=== PATIENT | female | born 1945 | race Asian ===

== ENCOUNTER → 2023-12-28 08:16 | Outpatient (REF) | payer MEDICARE, OTHER, SELFPAY | LOC: RST 08:16 | PROVIDERS: ATTENDING PHYSICIAN Otolaryngology; FAMILY PHYSICIAN Family Medicine | DX: R13.14 Dysphagia, pharyngoesophageal phase (principal) | CPT/HCPCS: 74230; 92611 ==

== ENCOUNTER → 2024-01-09 15:20 | Outpatient (REF) | payer MEDICARE, OTHER, SELFPAY | LOC: HWRAD 15:20 | PROVIDERS: ATTENDING PHYSICIAN Otolaryngology; FAMILY PHYSICIAN Family Medicine | DX: H65.33 Chronic mucoid otitis media, bilateral (principal) | CPT/HCPCS: 70480 ==

== ENCOUNTER → 2024-01-22 09:09 | Outpatient (REF) | payer MEDICARE, OTHER, SELFPAY ==
[2024-01-22 12:02] LABS: ALT (SGPT) 25 U/L (0-35); AST (SGOT) 28 U/L (14-36); Albumin 4.8 g/dl (3.5-5.0); Alkaline Phosphatase 58 U/L (38-126); Blood Urea Nitrogen 26 mg/dl (7-17); Calcium 10.3 mg/dl (8.4-10.2); Carbon Dioxide 27 mmol/L (22-30); Chloride 101 mmol/L (98-107); Glucose 133 mg/dl (70-99); Potassium 4.5 mmol/L (3.5-5.1); Sodium 141 mmol/L (135-145); Total Bilirubin 0.6 mg/dl (0.2-1.3); Total Protein 7.6 g/dl (6.3-8.2); eGFR > 60.00
[2024-01-22 12:22] LABS: Vitamin D, 25-OH*** 32.8 ng/mL (30-80)
== END ==
LOC: HWLAB 09:09
PROVIDERS: ATTENDING PHYSICIAN Internal Medicine Rheumatology; FAMILY PHYSICIAN Family Medicine
DX: E55.9 Vitamin D deficiency, unspecified (principal); M81.0 Age-related osteoporosis without current pathological fracture; Z79.899 Other long term (current) drug therapy
CPT/HCPCS: 36415; 80053; 82306

== ENCOUNTER → 2024-07-08 08:53 | Outpatient (REF) | payer MEDICARE, OTHER, SELFPAY | LOC: HWRAD 08:53 | PROVIDERS: ATTENDING PHYSICIAN Family Medicine | DX: R04.2 Hemoptysis (principal) | CPT/HCPCS: 71046 ==

== ENCOUNTER 2024-07-24 06:22 | Day surgery (SDC) | payer MEDICARE, OTHER, SELFPAY ==
[2024-07-24 08:14] LABS: Glucose - Point of Care 123 mg/dl (70-99)
== END 2024-07-24 09:53 | disposition home or self-care (01) ==
LOC: GI 06:22
PROVIDERS: ATTENDING PHYSICIAN Internal Medicine Gastroenterology
DX: K21.00 Gastro-esophageal reflux disease with esophagitis, without bleeding (principal); J02.9 Acute pharyngitis, unspecified; Q39.9 Congenital malformation of esophagus, unspecified; K29.70 Gastritis, unspecified, without bleeding
CPT/HCPCS: 43239; 88305; 82962; 88342

== ENCOUNTER → 2024-08-27 09:31 | Outpatient (REF) | payer MEDICARE, OTHER, SELFPAY ==
[2024-08-27 12:10] LABS: ALT (SGPT) 29 U/L (0-35); AST (SGOT) 31 U/L (14-36); Albumin 4.6 g/dl (3.5-5.0); Alkaline Phosphatase 64 U/L (38-126); Blood Urea Nitrogen 21 mg/dl (7-17); Calcium 10.3 mg/dl (8.4-10.2); Carbon Dioxide 27 mmol/L (22-30); Chloride 105 mmol/L (98-107); Glucose 138 mg/dl (70-99); Potassium 4.2 mmol/L (3.5-5.1); Sodium 140 mmol/L (135-145); Total Bilirubin 0.7 mg/dl (0.2-1.3); Total Protein 7.4 g/dl (6.3-8.2); eGFR > 60.00
== END ==
LOC: HWLAB 09:31
PROVIDERS: ATTENDING PHYSICIAN Internal Medicine Rheumatology; FAMILY PHYSICIAN Family Medicine
DX: M81.0 Age-related osteoporosis without current pathological fracture (principal); Z79.899 Other long term (current) drug therapy
CPT/HCPCS: 36415; 80053

== ENCOUNTER → 2024-09-17 11:01 | Outpatient (REF) | payer MEDICARE, OTHER, SELFPAY | LOC: HWRAD 11:01 | PROVIDERS: ATTENDING PHYSICIAN Internal Medicine Rheumatology; FAMILY PHYSICIAN Family Medicine | DX: M81.0 Age-related osteoporosis without current pathological fracture (principal); M85.89 Other specified disorders of bone density and structure, multiple sites; Z13.820 Encounter for screening for osteoporosis | CPT/HCPCS: 77080; 77081 ==

== ENCOUNTER → 2024-12-02 10:53 | Outpatient (REF) | payer MEDICARE, OTHER, SELFPAY ==
[2024-12-02 16:38] LABS: Hematocrit 40.8 % (37.0-47.0); Hemoglobin 13.3 g/dL (12.0-16.0); Mean Corp Hgb Conc. 32.6 g/dL (33.0-37.0); Mean Corpuscular Volume 93.4 fL (81.0-99.0); Nucleated Red Blood Cells % 0 %; Platelet Count 264 10^3/uL (130-400); Red Cell Dist. Width 12.8 % (11.5-14.5)
[2024-12-02 17:03] LABS: ALT (SGPT) 37 U/L (0-35); AST (SGOT) 36 U/L (14-36); Albumin 4.8 g/dl (3.5-5.0); Alkaline Phosphatase 62 U/L (38-126); Blood Urea Nitrogen 23 mg/dl (7-17); Calcium 9.9 mg/dl (8.4-10.2); Carbon Dioxide 29 mmol/L (22-30); Chloride 102 mmol/L (98-107); Glucose 126 mg/dl (70-99); HDL Cholesterol 67 mg/dl; LDL Cholesterol, Calculated 82 mg/dl; Potassium 4.7 mmol/L (3.5-5.1); Sodium 138 mmol/L (135-145); Total Protein 7.7 g/dl (6.3-8.2); Very Low Density Lipoprotein 17 mg/dl (0-30); eGFR > 60.00
[2024-12-03 09:59] LABS: Glycohemoglobin (HgbA1c) 7.7 % (4.0-5.6)
== END ==
LOC: HWLAB 10:53
PROVIDERS: ATTENDING PHYSICIAN Family Medicine
DX: E11.9 Type 2 diabetes mellitus without complications (principal); E78.2 Mixed hyperlipidemia; K86.1 Other chronic pancreatitis
CPT/HCPCS: 36415; 80053; 80061; 83036; 84443; 85025